=== PATIENT | female | born 2000 | race Caucasian/White ===

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

== ENCOUNTER 2021-12-28 16:39 | Emergency (ER) | payer OTHER, MEDICAID, SELFPAY ==
[2021-12-28 16:50] VITALS: BP 164/85; PULSE 94; RESP 20; TEMP 36.7; O2SAT 96; BMI 33.0
--- NOTE | 2021-12-28 17:07 | ED_ITS ---
HPI - Psych General Chief Complaint: Psychiatric Symptoms Stated Complaint: suicidal thoughts/x2 months Time Seen by Provider: 12/28/21 16:49 Source: patient and family Mode of arrival: Ambulatory Limitations: no limitations History of Present Illness HPI Narrative: Patient is a 21-year-old female. Has a prior diagnosis of anxiety and depression. Has been on medications in the past for this but nothing currently. She also has seen a therapist in the past however she stated that earlier this year when she was no longer on her parents' insurance and she did not have a job she did not have a way to pay for the therapy session so she has not been in to see anyone in sometime. States for the past couple months she has had almost daily thoughts of suicide although never had much of a drive to act on any of these thoughts. He stated that this morning for some reason the suicidal thoughts became much more invasive. She stated that she was very scared that she actually was going to act on the thoughts. She kept telling herself that she would not be alive by the time evening came. She had plans on taking pills and overdosing. She told her mother about the thoughts and voluntarily came to the emergency department. She stated that she has not tried to hurt herself. No alcohol. No illicit drugs. Did not take any medications prior to arrival. She states she has been admitted to the hospital in the past for mental health issues but that was when she was 14 years old. She is accompanied here in the emergency department by her mother. She states that she has done cutting in the past but nothing recent. Related Data Home Medications Medication Instructions Recorded Confirmed propranolol 10 mg tablet 10 mg PO BID PRN Anxiety 07/07/18 07/07/18 Allergies Allergy/AdvReac Type Severity Reaction Status Date / Time No Known Drug Allergies Allergy Verified 12/29/21 12:44 Review of Systems Constitutional Comments: Denies headache Cardiovascular Comments: Denies chest pain Respiratory Comments: Denies shortness of breath Gastrointestinal Comments: Denies abdominal pain Genitourinary Comments: Denies any urinary symptoms Integumentary/Breasts Comments: Denies any rashes Psychiatric Psychiatric: Reports system reviewed and no additional complaints, except as d ocumented and Reports as per HPI Hematologic/Lymphatic On Anticoagulants: No Patient History Medical History Anxiety Depression Intentional drug overdose Patient denies significant medical history Social History Smoking Status: Never smoker Smoking Status: Never smoker alcohol intake frequency: 0-2 drinks per day Substance Use Type: does not use Exam Initial Vital Signs Initial Vital Signs: Vital Signs Temperature 98.0 F 12/28/21 16:50 Pulse Rate 94 H 12/28/21 16:50 Respiratory Rate 20 12/28/21 16:50 Blood Pressure 164/85 H 12/28/21 16:50 Pulse Oximetry 96 12/28/21 16:50 Oxygen Delivery Method 12/28/21 16:50 Const General: cooperative, comfortable and well developed HENMT Head: normal to inspection and normocephalic Resp Effort & Inspection: normal respiratory effort Auscultation: clear to auscultation bilaterally Cardio Rate: regular rate Rhythm: regular rhythm GI Inspection: normal to inspection Skin General: no rashes or lesions noted Neuro General: patient alert, patient awake, patient oriented x3 and moves all extremities Extrem General: normal to inspection Psych Appearance: well kempt Speech and Movement: not agitated and restless Mood: anxious mood and No angry Affect: sad Attitude: cooperative Thought Process: normal Thought Content: suicidality Course Orders Ordered: Discontinued Medications Lorazepam (Lorazepam 0.5 Mg Tablet) 0.5 mg PO NOW ONE Stop: 12/28/21 17:19 Last Admin: 12/28/21 17:31 Dose: 0.5 mg Documented By: ROBERTO CARLOS Nicotine (Nicotine 14 Patch) 14 mg TOP NOW ONE Stop: 12/29/21 13:50 Last Admin: 12/29/21 14:06 Dose: 14 mg Documented By: CTS Vital Signs Vital signs: Vital Signs - 8 hr 12/29/21 13:36 Temperature 97.7 F Pulse Rate 73 Respiratory Rate 16 Blood Pressure 131/79 Pulse Oximetry 99 Oxygen Delivery Method Room Air MDM - Psych Lab Data Result diagrams: 12/28/21 17:22 12/28/21 17:22 Labs: Lab Results 12/28/21 12/28/21 12/28/21 Range/Units 17:08 17:15 17:15 WBC (4.5-11.0) X10^3/uL RBC (4.0-5.2) X10^6/uL Hgb (12.0-16.0) g/dL Hct (36-46) % MCV (80-100) fL MCH (26-34) PG MCHC (30-36) % RDW (11.6-14.8) % Plt Count (150-400) X10^3/uL Neut % (Auto) (50-75) % Lymph % (Auto) (25-40) % [place] % (Auto) (3-14) % Eos % (Auto) (2-4) % Baso % (Auto) (0-2) % Neut # (Auto) (3980-0266) /uL Lymph # (Auto) (5305-6011) /uL [place] # (Auto) (0-900) /uL Eos # (Auto) (0-450) /uL Baso # (Auto) (0-100) /uL Sodium (137-145) mmol/L Potassium (3.4-5.1) mmol/L Chloride (98-107) mmol/L Carbon Dioxide (22-32) mmol/L BUN (7-17) mg/dL Creatinine (0.52-1.04) mg/dL Estimated GFR (>60) mL/min BUN/Creatinine Ratio (6-22) Glucose (70-100) mg/dL Calcium (8.4-10.2) mg/dL Total Bilirubin (0.2-1.3) mg/dL AST (14-36) IU/L ALT (<35) IU/L Alkaline Phosphatase (38-126) U/L Total Protein (6.3-8.2) g/dL Albumin (3.5-5.0) g/dL Globulin (1.7-4.1) g/dL Albumin/Globulin Ratio (1.0-2.8) TSH (0.47-4.68) uIU/mL Free T4 (0.78-2.19) ng/dL Urine RBC 1-5/hpf (0-5/HPF) Urine WBC 10-30/hpf H (0-5/HPF) Ur Squamous Epith Cells 10-30 /hpf H (0-5/HPF) Amorphous Sediment 2+ Urine Bacteria Few (2-10) H (None) Urine Mucus 2+ H (Negative) Ur Culture Indicated? Specimen cultured Salicylates (<20) mg/dL U Opiates 300ng/mL cut Negative (Negative) Ur Oxycodone Screen Negative (Negative) Urine Methadone Screen Negative (Negative) Acetaminophen (10-30) ug/mL Ur Barbiturates Screen Negative (Negative) U Tricyclic Antidepress Negative (Negative) Ur Phencyclidine Scrn Negative (Negative) Ur Amphetamines Screen Negative (Negative) U Methamphetamines Scrn Negative (Negative) Ur MDMA Scrn (Ecstasy) Negative (Negative) U Benzodiazepines Scrn Negative (Negative) Urine Cocaine Screen Negative (Negative) U Marijuana (THC) Screen Positive H (Negative) Ethyl Alcohol ( - 10) mg/dL SARS-CoV-2 (PCR) Negative (Negative) 12/28/21 12/28/21 12/28/21 Range/Units 17:22 17:22 17:22 WBC 11.4 H (4.5-11.0) X10^3/uL RBC 5.21 H (4.0-5.2) X10^6/uL Hgb 15.2 (12.0-16.0) g/dL Hct 45.5 (36-46) % MCV 87.3 (80-100) fL MCH 29.1 (26-34) PG MCHC 33.3 (30-36) % RDW 13.8 (11.6-14.8) % Plt Count 262 (150-400) X10^3/uL Neut % (Auto) 77.5 H (50-75) % Lymph % (Auto) 14.7 L (25-40) % [place] % (Auto) 7.0 (3-14) % Eos % (Auto) 0.3 L (2-4) % Baso % (Auto) 0.5 (0-2) % Neut # (Auto) 8900 H (7488-7637) /uL Lymph # (Auto) 1700 (8893-9454) /uL [place] # (Auto) 800 (0-900) /uL Eos # (Auto) 0 (0-450) /uL Baso # (Auto) 100 (0-100) /uL Sodium 142 (137-145) mmol/L Potassium 4.1 (3.4-5.1) mmol/L Chloride 104 (98-107) mmol/L Carbon Dioxide 23 (22-32) mmol/L BUN 10 (7-17) mg/dL Creatinine 0.96 (0.52-1.04) mg/dL Estimated GFR > 60 (>60) mL/min BUN/Creatinine Ratio 10.4 (6-22) Glucose 91 (70-100) mg/dL Calcium 9.5 (8.4-10.2) mg/dL Total Bilirubin 0.6 (0.2-1.3) mg/dL AST 28 (14-36) IU/L ALT 19 (<35) IU/L Alkaline Phosphatase 94 (38-126) U/L Total Protein 9.1 H (6.3-8.2) g/dL Albumin 5.0 (3.5-5.0) g/dL Globulin 4.1 (1.7-4.1) g/dL Albumin/Globulin Ratio 1.2 (1.0-2.8) TSH 0.444 L (0.47-4.68) uIU/mL Free T4 1.47 (0.78-2.19) ng/dL Urine RBC (0-5/HPF) Urine WBC (0-5/HPF) Ur Squamous Epith Cells (0-5/HPF) Amorphous Sediment Urine Bacteria (None) Urine Mucus (Negative) Ur Culture Indicated? Salicylates < 1.0 (<20) mg/dL U Opiates 300ng/mL cut (Negative) Ur Oxycodone Screen (Negative) Urine Methadone Screen (Negative) Acetaminophen < 10 (10-30) ug/mL Ur Barbiturates Screen (Negative) U Tricyclic Antidepress (Negative) Ur Phencyclidine Scrn (Negative) Ur Amphetamines Screen (Negative) U Methamphetamines Scrn (Negative) Ur MDMA Scrn (Ecstasy) (Negative) U Benzodiazepines Scrn (Negative) Urine Cocaine Screen (Negative) U Marijuana (THC) Screen (Negative) Ethyl Alcohol < 10 ( - 10) mg/dL SARS-CoV-2 (PCR) (Negative) Point of Care Testing Test Results Negative Urine Dip Bedside Urine Glucose Negative Bedside Urine Bilirubin + 1 Bedside Urine Ketone + 15 Urine Specific [place] 1.030 Bedside Urine Occult Blood + Bedside Urine pH 5.0 Bedside Urine Protein + 30 Bedside Urine Urobilinogen - Negative Bedside Urine Nitrite - Negative Bedside Urine Leukocytes + 70 Esterase MDM Narrative Medical decision making narrative: Patient is here voluntarily. Patient denies any ingestions. She is currently having very invasive suicidal thoughts that obviously scared her. She states she was very nervous about being here. She was crying during the interview. I initially offered her Ativan to help with the anxiety and initially she declined but then after talking with nursing staff she stated that she would take it. She was given 0.5 mg Ativan p.o.. Patient is medically cleared. She does have leukocyte esterase in her urine and some white blood cells but also many epi cells. The specimen was cultured. Given her lack of UTI like symptoms will wait for the culture to result before treating with any antibiotics. Patient is medically cleared. Social work consult placed. Care turned over to Dr. Shelton at change of shift to continue to observe until disposition. Patient has been stable overnight. Has not required any further benzodiazepines. Was given a nicotine patch for her request. Patient was evaluated by social work. She is voluntary. Was accepted to [facility]. Will transfer to [facility] voluntary. She is stable for transport. Discharge Plan Departure Patient Disposition: Xfer Psychiatric Hosp Clinical Impression: Suicidal ideation, Depression, Anxiety Referrals: Sean Zavala MD [Primary Care Provider] -
[2021-12-28] MEDS: LORazepam 0.5 MG TABLET PO (17:31)
[2021-12-28 17:33] LABS: Add Manual Diff / Slide Review NO; Basophils Absolute Auto 100 /uL (0-100); Basophils Percent Auto 0.5 % (0-2); Eosinophils Absolute Auto 0 /uL (0-450); Eosinophils Percent Auto 0.3 % (2-4); Hematocrit 45.5 % (36-46); Hemoglobin 15.2 g/dL (12.0-16.0); Lymphocytes Absolute Auto 1700 /uL (1100-4500); Lymphocytes Percent Auto 14.7 % (25-40); Mean Corpuscular HGB Conc 33.3 % (30-36); Mean Corpuscular Hemoglobin 29.1 PG (26-34); Mean Corpuscular Volume 87.3 fL (80-100); Monocytes Absolute Auto 800 /uL (0-900); Neutrophils Absolute Auto 8900 /uL (1500-7000); Neutrophils Percent Auto 77.5 % (50-75); Platelet Count 262 X10^3/uL (150-400); Red Blood Cell Count 5.21 X10^6/uL (4.0-5.2); Red Cell Distribution Width 13.8 % (11.6-14.8); White Blood Cell Count 11.4 X10^3/uL (4.5-11.0)
[2021-12-28 17:35] LABS: Amorphous Sediment Urine 2+; Bacteria Urine Few (2-10); Culture Indicated Urine Specimen Cultured; Mucus Urine 2+ (Negative); RBC Urine 1-5/HPF (0-5/HPF); Squamous Epithelial Cell Urine 10-30 /HPF (0-5/HPF); WBC Urine 10-30/HPF (0-5/HPF)
[2021-12-28 17:40] LABS: UR Morphine/Opiate cutoff 300 Negative (Negative); Ur Creatinine Normal (Normal); Ur Specific Gravity Normal (Normal); Urine Amphetamines Negative (Negative); Urine Barbiturates Negative (Negative); Urine Benzodiazepines Negative (Negative); Urine Cocaine Negative (Negative); Urine MDMA Negative (Negative); Urine Methadone Negative (Negative); Urine Methamphetamines Negative (Negative); Urine Oxycodone Negative (Negative); Urine Phencyclidine Negative (Negative); Urine Tetrahydrocannabinol Positive (Negative); Urine Tricyclic Antidepressant Negative (Negative); Urine pH Normal (Normal)
[2021-12-28 17:44] LABS: COVID19 -Nasal RAPID Negative (Negative)
[2021-12-28 17:46] LABS: Acetaminophen < 10 ug/mL (10-30); Alanine Aminotransferase 19 IU/L (<35); Albumin Globulin Ratio 1.2 (1.0-2.8); Alkaline Phosphatase 94 U/L (38-126); Aspartate Aminotransferase 28 IU/L (14-36); BUN Creatinine Ratio 10.4 (6-22); Bilirubin Total 0.6 mg/dL (0.2-1.3); Blood Urea Nitrogen 10 mg/dL (7-17); Calcium 9.5 mg/dL (8.4-10.2); Carbon Dioxide 23 mmol/L (22-32); Chloride 104 mmol/L (98-107); Estimated Glomerular Filt Rate > 60 mL/min (>60); Ethanol (ETOH) < 10 mg/dL; Globulin 4.1 g/dL (1.7-4.1); Glucose 91 mg/dL (70-100); HEMOLYSIS < 15 (0-50); Potassium 4.1 mmol/L (3.4-5.1); Salicylate < 1.0 mg/dL (<20); Sodium 142 mmol/L (137-145); Total Protein 9.1 g/dL (6.3-8.2)
[2021-12-28 18:02] LABS: Free T4, Direct Thyroxine 1.47 ng/dL (0.78-2.19)
[2021-12-28 18:16] LABS: Thyroid Stimulating Hormone 0.444 uIU/mL (0.47-4.68)
--- NOTE | 2021-12-28 18:24 | PC.NURSE ---
Patient is calm and agreeable with staff, mother at bedside.
--- NOTE | 2021-12-29 02:34 | PM.HP.1 ---
History of Present Illness History of Present Illness Date Patient Seen: 12/29/21 Date of Onset of Symptoms: 12/28/21 Chief complaint: suicidal thoughts/x2 months Patient History Medical History Anxiety Depression Intentional drug overdose Patient denies significant medical history Family & Social History Safety & Behavioral: Feels Safe in Current Yes Environment Been Physically Hurt or No Threatened By a Person Tobacco & Substance use: Smoking Status Never smoker alcohol intake frequency 0-2 drinks per day Substance Use Type does not use Meds Home Medications and Allergies Home Medications Medication Instructions Recorded Confirmed Type propranolol 10 mg tablet 10 mg PO BID PRN Anxiety 07/07/18 07/07/18 History Allergies Allergy/AdvReac Type Severity Reaction Status Date / Time No Known Drug Allergies Allergy Verified 07/07/18 09:25 Exam Vital Signs (past 8 hours): Oxygen Delivery Method Room Air Objective Labs Result Diagrams: 12/28/21 17:22 12/28/21 17:22 Labs: Laboratory Results - last 24 hr 12/28/21 12/28/21 12/28/21 17:08 17:15 17:15 WBC RBC Hgb Hct MCV MCH MCHC RDW Plt Count Neut % (Auto) Lymph % (Auto) [place] % (Auto) Eos % (Auto) Baso % (Auto) Neut # (Auto) Lymph # (Auto) [place] # (Auto) Eos # (Auto) Baso # (Auto) Sodium Potassium Chloride Carbon Dioxide BUN Creatinine Estimated GFR BUN/Creatinine Ratio Glucose Calcium Total Bilirubin AST ALT Alkaline Phosphatase Total Protein Albumin Globulin Albumin/Globulin Ratio TSH Free T4 Urine RBC 1-5/hpf Urine WBC 10-30/hpf H Ur Squamous Epith Cells 10-30 /hpf H Amorphous Sediment 2+ Urine Bacteria Few (2-10) H Urine Mucus 2+ H Ur Culture Indicated? Specimen cultured Salicylates U Opiates 300ng/mL cut Negative Ur Oxycodone Screen Negative Urine Methadone Screen Negative Acetaminophen Ur Barbiturates Screen Negative U Tricyclic Antidepress Negative Ur Phencyclidine Scrn Negative Ur Amphetamines Screen Negative U Methamphetamines Scrn Negative Ur MDMA Scrn (Ecstasy) Negative U Benzodiazepines Scrn Negative Urine Cocaine Screen Negative U Marijuana (THC) Screen Positive H Ethyl Alcohol SARS-CoV-2 (PCR) Negative 12/28/21 12/28/21 12/28/21 17:22 17:22 17:22 WBC 11.4 H RBC 5.21 H Hgb 15.2 Hct 45.5 MCV 87.3 MCH 29.1 MCHC 33.3 RDW 13.8 Plt Count 262 Neut % (Auto) 77.5 H Lymph % (Auto) 14.7 L [place] % (Auto) 7.0 Eos % (Auto) 0.3 L Baso % (Auto) 0.5 Neut # (Auto) 8900 H Lymph # (Auto) 1700 [place] # (Auto) 800 Eos # (Auto) 0 Baso # (Auto) 100 Sodium 142 Potassium 4.1 Chloride 104 Carbon Dioxide 23 BUN 10 Creatinine 0.96 Estimated GFR > 60 BUN/Creatinine Ratio 10.4 Glucose 91 Calcium 9.5 Total Bilirubin 0.6 AST 28 ALT 19 Alkaline Phosphatase 94 Total Protein 9.1 H Albumin 5.0 Globulin 4.1 Albumin/Globulin Ratio 1.2 TSH 0.444 L Free T4 1.47 Urine RBC Urine WBC Ur Squamous Epith Cells Amorphous Sediment Urine Bacteria Urine Mucus Ur Culture Indicated? Salicylates < 1.0 U Opiates 300ng/mL cut Ur Oxycodone Screen Urine Methadone Screen Acetaminophen < 10 Ur Barbiturates Screen U Tricyclic Antidepress Ur Phencyclidine Scrn Ur Amphetamines Screen U Methamphetamines Scrn Ur MDMA Scrn (Ecstasy) U Benzodiazepines Scrn Urine Cocaine Screen U Marijuana (THC) Screen Ethyl Alcohol < 10 SARS-CoV-2 (PCR) Assessment & Plan Assessment and plan (1) Acute respiratory failure with hypoxia: Status: Acute (2) Acute asthma exacerbation: Status: Acute (3) CAP (community acquired pneumonia): Status: Acute (4) Hypokalemia: Status: Acute Time Spent With Patient Critical Care time: I spent a total of [] minutes of critical care time on this patient's care today; this time is exclusive of procedural time.
--- NOTE | 2021-12-29 02:47 | PC.NURSE ---
Pt sitting quietly on sherri reading a book
[2021-12-29 07:01] VITALS: BP 124/77; PULSE 78; RESP 18; O2SAT 99
[2021-12-29 13:36] VITALS: BP 131/79; PULSE 73; RESP 16; TEMP 36.5; O2SAT 99
--- NOTE | 2021-12-29 13:51 | CM.SWNOTE ---
CORK TIPPER Assessment CORK TIPPER - E Commerce Web Developer Assessment CORK TIPPER/E Commerce Web Developer Assessment Time Spent with Patient Start date 12/29/21 Visit Start Time 12:10 End date 12/29/21 Visit End Time 12:40 Total time Care Management spent on 30 minutes patient visit-in minutes Mental Health Screening Include Onset, Duration, Intensity Presenting Problem Patient presents to ED last evening with mother via POV due to patient's concern for increasing SI in the last few months. Patient reports that last evening patient felt increased intensity of SI and concern for carrying out SI plans and unable to stay safe. Patient informed her mother and mother brought patient to ED. Precipitating Event(s) Patient endorses in the last few months she stopped seeing her therapist due to losing insurance once she turned 21, she changed jobs and recently ended halfway relationship with boyfriend. Patient endorses she has been spiraling and I can't pick myself back up again. Patient Strengths Patient has supports and informed supports when she didn't feel safe. Patient is seeking help. Current Behavioral Health Provider(s) Patient endorses hx of Include Facility, Provider, Ph. # therapist and prescribing physician for MH medications but patient was unable to continue due to parent's insurance ending. Psych. Hx Mental Health and Chemical Patient has hx of Depression, Dependency Anxiety and SI. Patient endorses ETOH use and increase in the last few months, drinking 3 or more drinks about 3 days a week. Patient endorses Marijuana use when she needs help going to sleep. Family Hx of Behavioral Abuse None reported Psychiatric Hospitalizations (date(s)/ No hx. location) Patient endorses going to ED when she was 14 y/o due to concern for MH crisis. Psychosocial information & Support Patient is 21 y/o female who Systems resides with mother, step dad and two younger sisters in [place]. Patient endorses her mother as a main support and states that she relied on her ex- boyfriend as a support in the past and states that she could reach out to him now. School/Work Patient endorses that she works at [employer] and likes her job . Legal Concerns Legal Matters - Outstanding Issues None reported Mental Status Orientation (Person/Place/Time) A/Ox3 Stated Mood tired Affect (Congruent with Mood?) euthymic, full range, congruent with mood Thought Content - Specify/Describe Patient endorses hx of hearing Obsessions, Delusions, Hallucinations voices when she is lacking sleep. Patient endorses recently she responded to a conversation in her head. Patient denies visual hallucinations but states that I'll basically be losing it but it doesn't feel like real life and it feels like a hazy dream. Thought Processes (Bibcbjj-Yekvfesq-Vcza Coherent Vifgpkcq-Fckypwaw-Auhaeqzcph- Rohedjdbewewto-Wljfoac-Lektqskhelvo- Thought Blocking) Speech (Bsmijp-Pqhh-Yqqdwwq-Rapid-Soft- normal/soft Loud-Pressured) Motor (Mzmclo-Qcvjytjvf-Bmjw-Other) normal Insight (Frox-Vucm-Cgyf/Limited) fair/limited due to age Judgement (Jjqa-Mxlg-Djyr/Limited) fair/limited due to age Impulse Control (Adequate-Impaired) Adequate in ED during assessment, patient endorsed concern for impulse control prior to presenting to the ED. Memory (Hqdjsmkoe-Fczeyg-Cdfwzg, Intact, not formally assessed Impaired-Intact) Concentration (Intact-Impaired) Intact Attention (Intact-Impaired) Intact Behavior (Appropriate-Inappropriate) appropriate Additional Comment Patient presents as calm, cooperative and communicative. Risk Assessment Suicidal Ideation (Plan) Yes Homicidal Ideation (Plan) No Comment Patient denies HI. Patient endorses SI at baseline and increasing SI in the last few months. Patient endorses last yesterday her SI increased in intensity. Patient endorses thoughts of overdosing on old medications or cutting self. Patient endorsed concern to her mother that she was unable to keep herself safe. Patient endorses that yesterday she consistently thought about not being alive. Patient endorses hx of self harm when she cut herself when she was 17 or 18 y/o. Intervention Intervention CORK TIPPER enters room to meet with patient. Patient is sleeping and present in room is patient 's mother and step father. Patient's mother endorses concern for patient and states that patient could not contract for safety yesterday and informed mother about patient's increase in SI which led to mother bringing patient to ED. Patient wakes up and CORK TIPPER meets with patient privately. Patient endorses concern for increase in SI within the last few months due to life stressors and changes. Patient endorses that yesterday morning her SI intensified and she asked for help. Patient endorses she has not had an outpatient MH provider in a few months or been on any medication. Patient endorses she is interested in voluntary inpatient hospitalization and is seeking help. It is the opinion of this CORK TIPPER that patient is appropriate for and will benefit from voluntary inpatient hospitalization for safety, crisis stabilization and medication management. At this time, patient does not have insurance, CORK TIPPER to assist in signing patient up for state insurance. CORK TIPPER reviews the above with ED provider Dr. Cagle who indicates agreement and understanding. Dr. Cagle endorses that patient is medically clear. Plan RA Plan CORK TIPPER to seek voluntary inpatient hospitalization for patient. CORK TIPPER assists in setting up patient with state insurance. Patient now has Medicaid [place] coverage starting 12/11/21. JEF Batista
[2021-12-29] MEDS: NICOTINE 14 PATCH 14 MG TOP (14:06)
--- NOTE | 2021-12-29 14:46 | CM.SWNOTE ---
CARGO STATION WORKER Note CARGO STATION WORKER calls [facility] for bed census for [facility] inpatient hospitals. CARGO STATION WORKER calls [facility] intake, it is reported that they have beds and can review patient, CARGO STATION WORKER faxes clinicals for review. [facility]GO STATION WORK[facility] by accepting provider SHAQUILLE Ventura at arrival time 2130. BRICK CLEANER to set up transportation. Nurse to Nurse: [phone]. CARGO STATION WORKER informs patient who indicates agreement and understanding. CARGO STATION WORKER calls patient's mother and leaves requesting return call. Plan: Patient to transfer to [facility] via BLS for voluntary inpatient bed this evening. TARAN BatistaSW
--- NOTE | 2021-12-29 19:00 | PC.NURSE ---
patient reports that she is a little nervous about her stay at [facility]. she reports that she has never had an inpatient stay before and that she does not know what to expect. she reports that she had a bad experience when she was 14 at another facility and since then she has been scared to open up and express her feelings. provider aware.
[2021-12-29 20:45] VITALS: BP 142/83; PULSE 83; RESP 16; TEMP 37.2; O2SAT 99
== END 2021-12-29 20:45 ==
PROVIDERS: Emergency Provider Emergency Medicine; Family Provider Pediatrics Pediatric Emergency Medicine; PCP Pediatrics Pediatric Emergency Medicine
DX: R45.851 Suicidal ideations (principal); F32.A Depression, unspecified; F41.9 Anxiety disorder, unspecified; Z20.822 Contact with and (suspected) exposure to COVID-19
CPT/HCPCS: 36415; 80053; 80305; 80320; 80329; 81003; 81015; 81025; 84439; 84443; 85025; 87086; 87635; 99284; C9803; G0480

== ENCOUNTER → 2022-02-25 11:17 | Outpatient (CLI) | payer OTHER, MEDICAID, SELFPAY | PROVIDERS: Visit Provider Nurse Practitioner Family | DX: J02.9 Acute pharyngitis, unspecified (principal) | CPT/HCPCS: 87070; 87880 ==

== ENCOUNTER 2022-05-23 12:23 | Emergency (ER) | payer OTHER, MEDICAID, SELFPAY ==
[2022-05-23 12:39] VITALS: BP 121/69; PULSE 81; RESP 14; TEMP 37.4; O2SAT 100; BMI 32.3
[2022-05-23 13:23] LABS: Add Manual Diff / Slide Review NO; Basophils Absolute Auto 0 /uL (0-100); Basophils Percent Auto 0.3 % (0-2); Eosinophils Absolute Auto 0 /uL (0-450); Eosinophils Percent Auto 0.2 % (2-4); Hemoglobin 13.7 g/dL (12.0-16.0); Lymphocytes Absolute Auto 1600 /uL (1100-4500); Lymphocytes Percent Auto 9.7 % (25-40); Mean Corpuscular HGB Conc 32.7 % (30-36); Mean Corpuscular Hemoglobin 29.1 PG (26-34); Mean Corpuscular Volume 88.9 fL (80-100); Monocytes Absolute Auto 1900 /uL (0-900); Monocytes Percent Auto 11.7 % (3-14); Neutrophils Absolute Auto 12500 /uL (1500-7000); Neutrophils Percent Auto 78.1 % (50-75); Platelet Count 245 X10^3/uL (150-400); Red Blood Cell Count 4.72 X10^6/uL (4.0-5.2); Red Cell Distribution Width 13.5 % (11.6-14.8)
--- NOTE | 2022-05-23 13:30 | DI.US.S_ITS ---
PROCEDURE: US PELVIC COMPLETE INDICATIONS: POSITIVE HOME TECHNIQUE: Real-time scanning was performed of the pelvic organs, with image documentation. Additional endovaginal scanning was necessary due to incomplete visualization of the adnexal and endometrial structures by transabdominal scanning. COMPARISON: None. FINDINGS: Uterus: Uterus is anteverted and normal in size at 5.4 x 2.7 x 3.5 cm. The myometrium is homogeneous. The endometrium measures 5 mm combined thickness. No findings of an intrauterine can be seen. Ovaries: The right ovary measures 2.5 x 3.2 x 2 cm, with a calculated ovarian volume of 8.1 cc. The left ovary measures 2.9 x 2.6 x 1.5 cm, with a calculated ovarian volume of 5.8 cc. The ovaries have a normal sonographic appearance. Less than 12 follicles can be seen in each ovary. No adnexal masses are seen. Other: No pathologic free abdominal or pelvic fluid. IMPRESSION: An intrauterine is not seen. No findings of ectopic . Differential diagnosis includes a completed spontaneous miscarriage and an ectopic . An early normal is possible, yet considered to be unlikely, given the provided dating. Close clinical followup, with serial beta-hCG and serial ultrasound are recommended, if clinically appropriate. We strive to produce accurate, complete, and clear reports of imaging services. To assist us in improving patient care, this report was composed using standard report templates and voice recognition software. Therefore, it may contain abnormal punctuation, insertions and/or omissions. Occasional wrong-word or sound-alike substitutions may occur. Though we review the report and make efforts to correct it, we do recommend that the report be read carefully in proper context to recognize any text inaccuracies. Dictated by: Yuniel iBll M.D. on 05/23/2022 at 13:29 Approved by: Yuniel Bill M.D. on 05/23/2022 at 13:31
[2022-05-23 13:40] LABS: Influenza A - CEPHEID Flu A NEGATIVE (NEGATIVE); Influenza B - CEPHEID Flu B NEGATIVE (NEGATIVE); Respiratory Syncytial Virus Negative (Negative)
[2022-05-23 13:41] LABS: Alanine Aminotransferase 13 IU/L (<35); Albumin 4.6 g/dL (3.5-5.0); Albumin Globulin Ratio 1.2 (1.0-2.8); Alkaline Phosphatase 84 U/L (38-126); Aspartate Aminotransferase 20 IU/L (14-36); BUN Creatinine Ratio 11.4 (6-22); Blood Urea Nitrogen 9 mg/dL (7-17); Calcium 9.3 mg/dL (8.4-10.2); Carbon Dioxide 26 mmol/L (22-32); Chloride 100 mmol/L (98-107); Estimated Glomerular Filt Rate > 60 mL/min (>60); Globulin 3.7 g/dL (1.7-4.1); Glucose 95 mg/dL (70-100); HEMOLYSIS < 15 (0-50); Potassium 3.9 mmol/L (3.4-5.1); Sodium 138 mmol/L (137-145); Total Protein 8.3 g/dL (6.3-8.2)
[2022-05-23 13:57] LABS: HCG Quantitative /Beta subunit < 2.4 mIU/mL
[2022-05-23 14:00] LABS: COVID-19 CEPHEID 4-PLEX PCR Negative (Negative)
[2022-05-23 14:15] LABS: RBC Urine 0-1/HPF (0-5/HPF); WBC Urine 10-30/HPF (0-5/HPF)
[2022-05-23 14:16] LABS: Bacteria Urine Many (>30); Culture Indicated Urine Specimen Cultured; Squamous Epithelial Cell Urine >30 /HPF (0-5/HPF)
--- NOTE | 2022-05-23 14:56 | ED_ITS ---
HPI - URI/Sore Throat <SHAQUILLE Corrales - Last Filed: 05/23/22 15:32> General Chief Complaint: Upper Respiratory Symptoms Stated Complaint: body aches, throat pain/swelling, x3days Time Seen by Provider: 05/23/22 14:32 Source: patient Mode of arrival: Ambulatory History of Present Illness HPI Narrative: 21-year-old female, never smoker, presents to the emergency department with sore throat x3 days. Patient reports that throat has became more severely painful this morning and is having difficulty swallowing. Patient believes she is as her last menstrual period was 10 weeks ago. Patient has inte rmittent spotting and cramping since then. Related Data Previous Rx's Medication Instructions Recorded penicillin V potassium 500 mg 500 mg PO BID Strep pharyngitis 10 05/23/22 tablet days #20 tabs Allergies Allergy/AdvReac Type Severity Reaction Status Date / Time No Known Drug Allergies Allergy Verified 05/23/22 14:13 Review of Systems <SHAQUILLE Corrales - Last Filed: 05/23/22 15:32> Review of Systems Narrative: Narrative: See HPI. GENERAL: Denies chills, fatigue, fever, sweats. HEENT: Denies sinus pain, ear pain, dizziness. Endorses sore throat and difficulty swallowing. RESPIRATORY: Denies dyspnea, cough, wheezing, sputum. CARDIOVASCULAR: Denies chest pain, palpitations, edema. GASTROINTESTINAL: Denies nausea, vomiting, abdominal pain, diarrhea, constipatio n. : Denies dysuria, frequency, incontinence, hematuria, urinary retention, flank pain. MSK: Denies weakness, joint pain, or bony pain. SKIN: Denies rash, skin lesions, or pruritis. NEUROLOGIC: Denies weakness, dizziness, headache, numbness, confusion. PSYCHIATRIC: No concerning psychosocial issues. Patient History <SHAQUILLE Corrales - Last Filed: 05/23/22 15:32> Medical History Anxiety Depression Intentional drug overdose Patient denies significant medical history Social History Smoking Status: Never smoker Smoking Status: Never smoker alcohol intake frequency: 0-2 drinks per day Substance Use Type: does not use Exam <SHAQUILLE Corrales - Last Filed: 05/23/22 15:32> Narrative Exam Narrative: Exam Narrative: GENERAL: This is a well-nourished, well-developed patient, in no acute distress. HEAD: Atraumatic. Normocephalic. EYES: Pupils equal round and reactive. Extraocular motions intact. No scleral icterus, injection or drainage. ENT: Nose without bleeding, purulent drainage. Throat with erythema, tonsillar hypertrophy and exudate. Uvula midline. Airway patent. TMs and canals clear. No sinus tenderness. NECK: Trachea midline. Tender submandibular lymphadenopathy on left side. CARDIOVASCULAR: Regular rate and rhythm without murmurs, peripheral pulses intact, cap refill <2 sec. RESPIRATORY: Breath sounds equal and clear bilaterally. No wheezes, rales, or rhonchi. No cough. No increased respiratory effort. No accessory muscle use. GASTROINTESTINAL: Abdomen soft, non-tender, nondistended without guarding or rebound. No suprapubic pain. MSK: Moves all extremities. Normal range of motion, no clubbing or edema. Neurovascularly intact. NEURO: A&O x 3. SKIN: Warm, dry, no rashes or lesions noted. Initial Vital Signs Initial Vital Signs: Vital Signs Temperature 99.3 F 05/23/22 12:39 Pulse Rate 81 05/23/22 12:39 Respiratory Rate 14 05/23/22 12:39 Blood Pressure 121/69 05/23/22 12:39 Pulse Oximetry 100 05/23/22 12:39 Oxygen Delivery Method 05/23/22 12:39 Reviewed <Tari Gonzalez DO - Last Filed: 05/24/22 17:14> Initial Vital Signs Initial Vital Signs: Vital Signs Temperature 99.3 F 05/23/22 12:39 Pulse Rate 81 05/23/22 12:39 Respiratory Rate 14 05/23/22 12:39 Blood Pressure 121/69 05/23/22 12:39 Pulse Oximetry 100 05/23/22 12:39 Oxygen Delivery Method 05/23/22 12:39 Course <SHAQUILLE Corrales - Last Filed: 05/23/22 15:32> Orders Ordered: Discontinued Medications Dexamethasone (Dexamethasone 10 Mg/Ml Vial) 10 mg PO NOW ONE Stop: 05/23/22 15:04 Last Admin: 05/23/22 15:30 Dose: 10 mg Documented By: KLS Vital Signs Vital signs: Vital Signs - 8 hr 05/23/22 12:39 Temperature 99.3 F Pulse Rate 81 Respiratory Rate 14 Blood Pressure 121/69 Pulse Oximetry 100 Oxygen Delivery Method Room Air <Tari Gonzalez DO - Last Filed: 05/24/22 17:14> Orders Ordered: Discontinued Medications Dexamethasone (Dexamethasone 10 Mg/Ml Vial) 10 mg PO NOW ONE Stop: 05/23/22 15:04 Last Admin: 05/23/22 15:30 Dose: 10 mg Documented By: KLS Vital Signs Vital signs: Vital Signs - 8 hr 05/23/22 12:39 Temperature 99.3 F Pulse Rate 81 Respiratory Rate 14 Blood Pressure 121/69 Pulse Oximetry 100 Oxygen Delivery Method Room Air MDM - URI/Sore Throat <SHAQUILLE Corrales - Last Filed: 05/23/22 15:32> Differential Diagnosis Differential diagnosis: Likely upper respiratory infection, viral infection and pharyngitis; Unlikely otitis media or sinusitis Lab Data 05/23/22 13:05 05/23/22 13:05 Labs: Lab Results 05/23/22 05/23/22 05/23/22 Range/Units 12:45 13:05 13:05 WBC 16.0 H (4.5-11.0) X10^3/uL RBC 4.72 (4.0-5.2) X10^6/uL Hgb 13.7 (12.0-16.0) g/dL Hct 42.0 (36-46) % MCV 88.9 (80-100) fL MCH 29.1 (26-34) PG MCHC 32.7 (30-36) % RDW 13.5 (11.6-14.8) % Plt Count 245 (150-400) X10^3/uL Neut % (Auto) 78.1 H (50-75) % Lymph % (Auto) 9.7 L (25-40) % [place] % (Auto) 11.7 (3-14) % Eos % (Auto) 0.2 L (2-4) % Baso % (Auto) 0.3 (0-2) % Neut # (Auto) 26738 H (5270-7853) /uL Lymph # (Auto) 1600 (1776-4852) /uL [place] # (Auto) 1900 H (0-900) /uL Eos # (Auto) 0 (0-450) /uL Baso # (Auto) 0 (0-100) /uL Sodium 138 (137-145) mmol/L Potassium 3.9 (3.4-5.1) mmol/L Chloride 100 (98-107) mmol/L Carbon Dioxide 26 (22-32) mmol/L BUN 9 (7-17) mg/dL Creatinine 0.79 (0.52-1.04) mg/dL Estimated GFR > 60 (>60) mL/min BUN/Creatinine Ratio 11.4 (6-22) Glucose 95 (70-100) mg/dL Calcium 9.3 (8.4-10.2) mg/dL Total Bilirubin 1.0 (0.2-1.3) mg/dL AST 20 (14-36) IU/L ALT 13 (<35) IU/L Alkaline Phosphatase 84 (38-126) U/L Total Protein 8.3 H (6.3-8.2) g/dL Albumin 4.6 (3.5-5.0) g/dL Globulin 3.7 (1.7-4.1) g/dL Albumin/Globulin Ratio 1.2 (1.0-2.8) HCG, Quant < 2.4 mIU/mL Urine RBC (0-5/HPF) Urine WBC (0-5/HPF) Ur Squamous Epith Cells (0-5/HPF) Urine Bacteria (None) Ur Culture Indicated? SARS-CoV-2 (PCR) Negative (Negative) Influenza A (RT-PCR) Flu a negative (NEGATIVE) Influenza B (RT-PCR) Flu b negative (NEGATIVE) RSV (PCR) Negative (Negative) Blood Type Antibody Screen 05/23/22 05/23/22 Range/Units 13:05 13:59 WBC (4.5-11.0) X10^3/uL RBC (4.0-5.2) X10^6/uL Hgb (12.0-16.0) g/dL Hct (36-46) % MCV (80-100) fL MCH (26-34) PG MCHC (30-36) % RDW (11.6-14.8) % Plt Count (150-400) X10^3/uL Neut % (Auto) (50-75) % Lymph % (Auto) (25-40) % [place] % (Auto) (3-14) % Eos % (Auto) (2-4) % Baso % (Auto) (0-2) % Neut # (Auto) (3317-6186) /uL Lymph # (Auto) (2714-7094) /uL [place] # (Auto) (0-900) /uL Eos # (Auto) (0-450) /uL Baso # (Auto) (0-100) /uL Sodium (137-145) mmol/L Potassium (3.4-5.1) mmol/L Chloride (98-107) mmol/L Carbon Dioxide (22-32) mmol/L BUN (7-17) mg/dL Creatinine (0.52-1.04) mg/dL Estimated GFR (>60) mL/min BUN/Creatinine Ratio (6-22) Glucose (70-100) mg/dL Calcium (8.4-10.2) mg/dL Total Bilirubin (0.2-1.3) mg/dL AST (14-36) IU/L ALT (<35) IU/L Alkaline Phosphatase (38-126) U/L Total Protein (6.3-8.2) g/dL Albumin (3.5-5.0) g/dL Globulin (1.7-4.1) g/dL Albumin/Globulin Ratio (1.0-2.8) HCG, Quant mIU/mL Urine RBC 0-1/hpf (0-5/HPF) Urine WBC 10-30/hpf H (0-5/HPF) Ur Squamous Epith Cells >30 /hpf H (0-5/HPF) Urine Bacteria Many (>30) H (None) Ur Culture Indicated? Specimen cultured SARS-CoV-2 (PCR) (Negative) Influenza A (RT-PCR) (NEGATIVE) Influenza B (RT-PCR) (NEGATIVE) RSV (PCR) (Negative) Blood Type B Positive Antibody Screen Negative Point of Care Testing Test Results Negative Rapid Strep A Negative Urine Dip Bedside Urine Glucose Negative Bedside Urine Bilirubin - Negative Bedside Urine Ketone +++ 80 Urine Specific [place] 1.030 Bedside Urine Occult Blood +/- Bedside Urine pH 6.0 Bedside Urine Protein + 30 Bedside Urine Urobilinogen - Negative Bedside Urine Nitrite - Negative Bedside Urine Leukocytes - Negative Esterase Imaging Data US Pelvic: Radiologist's Impression: [address] [address] Ultrasound Report Signed Patient: Kierra Kidd MR#: [id number] : 2000 Acct:[id number] Age/Sex: 21 / F Date of Service: 05/23/22 Loc: ED Accession Number: [id number] ?? Procedure: US pelvic complete Ordering Provider: Tari Gonzalez D.O. PROCEDURE:? US PELVIC COMPLETE ? INDICATIONS:? POSITIVE HOME ? TECHNIQUE:? Real-time scanning was performed of the pelvic organs, with image documentation.? Additional endovaginal scanning was necessary due to incomplete visualization of the adnexal and endometrial structures by transabdominal scanning.? ? COMPARISON:? None. ? FINDINGS:? ?? Uterus:? Uterus is anteverted and normal in size at 5.4 x 2.7 x 3.5 cm. The myometrium is homogeneous. ? The endometrium measures 5 mm combined thickness.? No findings of an intrauterine can be seen. ? Ovaries:? The right ovary measures 2.5 x 3.2 x 2 cm, with a calculated ovarian volume of 8.1 cc. The left ovary measures 2.9 x 2.6 x 1.5 cm, with a calculated ovarian volume of 5.8 cc. The ovaries have a normal sonographic appearance. Less than 12 follicles can be seen in each ovary.? No adnexal masses are seen. ? Other:? No pathologic free abdominal or pelvic fluid. ? ? IMPRESSION:? An intrauterine is not seen. ? No findings of ectopic . ? Differential diagnosis includes a completed spontaneous miscarriage and an ectopic .? An early normal is possible, yet considered to be unlikely, given the provided dating. ? Close clinical followup, with serial beta-hCG and serial ultrasound are recommended, if clinically appropriate. ? We strive to produce accurate, complete, and clear reports of imaging services. To assist us in improving patient care, this report was composed using standard report templates and voice recognition software. Therefore, it may contain abnormal punctuation, insertions and/or omissions. Occasional wrong-word or sound-alike substitutions may occur. Though we review the report and make efforts to correct it, we do recommend that the report be read carefully in proper context to recognize any text inaccuracie s. ? ? Dictated by: Yuniel Bill M.D. on 05/23/2022 at 13:29 ? ? Approved by: Yuniel Bill M.D. on 05/23/2022 at 13:31 ? [facility] Narrative Medical decision making narrative: 21-year-old female presents to the walk-in clinic with sore throat x3 days. Patient is also concerned that she may be 10 weeks . HCG quant was less than 2.4 and pelvic ultrasound revealed no intra or extra uterine . Rapid strep was negative. Assessment was concerning due to the severity throat redness, swelling and discharge. Will begin antibiotic therapy clinically. Patient given a single dose of Decadron in the ED. IV D/C'd with catheter fully intact without any signs or symptoms of infiltration or phlebitis. Discussed plan of care and return precautions with patient, verbalized understanding and was agreeable with course of action. <Tari Gonzalez, DO - Last Filed: 05/24/22 17:14> Lab Data Labs: Lab Results 05/23/22 05/23/22 05/23/22 Range/Units 12:45 13:05 13:05 WBC 16.0 H (4.5-11.0) X10^3/uL RBC 4.72 (4.0-5.2) X10^6/uL Hgb 13.7 (12.0-16.0) g/dL Hct 42.0 (36-46) % MCV 88.9 (80-100) fL MCH 29.1 (26-34) PG MCHC 32.7 (30-36) % RDW 13.5 (11.6-14.8) % Plt Count 245 (150-400) X10^3/uL Neut % (Auto) 78.1 H (50-75) % Lymph % (Auto) 9.7 L (25-40) % [place] % (Auto) 11.7 (3-14) % Eos % (Auto) 0.2 L (2-4) % Baso % (Auto) 0.3 (0-2) % Neut # (Auto) 58307 H (8079-6119) /uL Lymph # (Auto) 1600 (7211-7044) /uL [place] # (Auto) 1900 H (0-900) /uL Eos # (Auto) 0 (0-450) /uL Baso # (Auto) 0 (0-100) /uL Sodium 138 (137-145) mmol/L Potassium 3.9 (3.4-5.1) mmol/L Chloride 100 (98-107) mmol/L Carbon Dioxide 26 (22-32) mmol/L BUN 9 (7-17) mg/dL Creatinine 0.79 (0.52-1.04) mg/dL Estimated GFR > 60 (>60) mL/min BUN/Creatinine Ratio 11.4 (6-22) Glucose 95 (70-100) mg/dL Calcium 9.3 (8.4-10.2) mg/dL Total Bilirubin 1.0 (0.2-1.3) mg/dL AST 20 (14-36) IU/L ALT 13 (<35) IU/L Alkaline Phosphatase 84 (38-126) U/L Total Protein 8.3 H (6.3-8.2) g/dL Albumin 4.6 (3.5-5.0) g/dL Globulin 3.7 (1.7-4.1) g/dL Albumin/Globulin Ratio 1.2 (1.0-2.8) HCG, Quant < 2.4 mIU/mL Urine RBC (0-5/HPF) Urine WBC (0-5/HPF) Ur Squamous Epith Cells (0-5/HPF) Urine Bacteria (None) Ur Culture Indicated? SARS-CoV-2 (PCR) Negative (Negative) Influenza A (RT-PCR) Flu a negative (NEGATIVE) Influenza B (RT-PCR) Flu b negative (NEGATIVE) RSV (PCR) Negative (Negative) Blood Type Antibody Screen 05/23/22 05/23/22 Range/Units 13:05 13:59 WBC (4.5-11.0) X10^3/uL RBC (4.0-5.2) X10^6/uL Hgb (12.0-16.0) g/dL Hct (36-46) % MCV (80-100) fL MCH (26-34) PG MCHC (30-36) % RDW (11.6-14.8) % Plt Count (150-400) X10^3/uL Neut % (Auto) (50-75) % Lymph % (Auto) (25-40) % [place] % (Auto) (3-14) % Eos % (Auto) (2-4) % Baso % (Auto) (0-2) % Neut # (Auto) (0340-9300) /uL Lymph # (Auto) (2008-7050) /uL [place] # (Auto) (0-900) /uL Eos # (Auto) (0-450) /uL Baso # (Auto) (0-100) /uL Sodium (137-145) mmol/L Potassium (3.4-5.1) mmol/L Chloride (98-107) mmol/L Carbon Dioxide (22-32) mmol/L BUN (7-17) mg/dL Creatinine (0.52-1.04) mg/dL Estimated GFR (>60) mL/min BUN/Creatinine Ratio (6-22) Glucose (70-100) mg/dL Calcium (8.4-10.2) mg/dL Total Bilirubin (0.2-1.3) mg/dL AST (14-36) IU/L ALT (<35) IU/L Alkaline Phosphatase (38-126) U/L Total Protein (6.3-8.2) g/dL Albumin (3.5-5.0) g/dL Globulin (1.7-4.1) g/dL Albumin/Globulin Ratio (1.0-2.8) HCG, Quant mIU/mL Urine RBC 0-1/hpf (0-5/HPF) Urine WBC 10-30/hpf H (0-5/HPF) Ur Squamous Epith Cells >30 /hpf H (0-5/HPF) Urine Bacteria Many (>30) H (None) Ur Culture Indicated? Specimen cultured SARS-CoV-2 (PCR) (Negative) Influenza A (RT-PCR) (NEGATIVE) Influenza B (RT-PCR) (NEGATIVE) RSV (PCR) (Negative) Blood Type B Positive Antibody Screen Negative Point of Care Testing Test Results Negative Rapid Strep A Negative Urine Dip Bedside Urine Glucose Negative Bedside Urine Bilirubin - Negative Bedside Urine Ketone +++ 80 Urine Specific [place] 1.030 Bedside Urine Occult Blood +/- Bedside Urine pH 6.0 Bedside Urine Protein + 30 Bedside Urine Urobilinogen - Negative Bedside Urine Nitrite - Negative Bedside Urine Leukocytes - Negative Esterase Discharge Plan Departure Patient Disposition: Home Clinical Impression: Pharyngitis Instructions: DI for Strep Throat Activity Restrictions/Additional Instructions: *You have been diagnosed with pharyngitis. Will begin treatment with penicillin starting today. We have given you a single dose of Decadron to help with the swelling in your throat. Good supportive care includes getting plenty of rest, increased oral hydration, cool fluids throughout the day, cool compresses to your throat, Tylenol or ibuprofen as needed for discomfort and take your antibiotics as prescribed. As we discussed, your blood test and ultrasound revealed that you are not at this time. Please follow-up with your [facility] doctor, urgent care or return to the emergency department if symptoms persist or worsen. *What to do: *Please continue to take your regular medications as directed. [x ] New medication prescriptions sent to your pharmacy: [[facility] in [place]] [ ] New medication written as a paper prescription [ ] No new medications given *Please follow up with your primary care provider in 2-3 days, call for an appointment. Let them know you were seen in the Emergency Department and that we ask that you be seen in follow up. We will electronically transmit a record of today's note if your PCP is in our system *If you do not have a primary care provider please contact the [facility] Resource line at [phone]. They will ask some questions about your medical history and help get you set up with a doctor in the community. ? Return to ER if you should have any new, worsening or concerning symptoms, such as worsening pain, severe headache, confusion, chest pain, difficulty breathing, fever greater than 101 F, shaking chills, persistent vomiting to the point that you cannot drink fluids, or other new or worsening symptoms. Prescriptions: New penicillin V potassium 500 mg tablet 500 mg PO BID 10 Days Qty: 20 0RF Referrals: Miscellaneous,DoctorMD [Primary Care Provider] - Stand Alone Forms: Patient Portal/API <Tari Gonzalez DO - Last Filed: 05/24/22 17:14> Cosign ED Attending Joseature Attestation: I was immediately available in the department for consultation. Documentation has been reviewed.
[2022-05-23] MEDS: DEXAMETHASONE 10 MG/ML VIAL PO (15:30)
[2022-05-23 15:37] VITALS: BP 114/58; PULSE 88; RESP 18; TEMP 36.6; O2SAT 99
== END 2022-05-23 15:38 | disposition home or self-care (01) ==
PROVIDERS: Emergency Medicine; Emergency Provider Registered Nurse
DX: J02.9 Acute pharyngitis, unspecified (principal); N92.6 Irregular menstruation, unspecified; Z20.822 Contact with and (suspected) exposure to COVID-19
CPT/HCPCS: 0241U; 76830; 76856; 80053; 81003; 81015; 81025; 84702; 85025; 86850; 86900; 86901; 87070; 87086; 87147; 87880; 99284; J1100

== ENCOUNTER → 2023-01-06 10:02 | Outpatient (CLI) | payer OTHER, MEDICAID, SELFPAY ==
--- NOTE | 2023-01-06 10:05 | DI.US.S_ITS ---
PROCEDURE: US OB <= 14 WEEKS FETUS INDICATIONS: DATES OUTSIDE/PRIOR DATING DATA: Last menstrual period (LMP): 10/10/2022. LMP-based estimated date of delivery (KELLY): 07/17/2023. First dating scan (date and location): 01/06/2023. Estimated date of delivery (KELLY) from first dating scan: 08/10/2023. The calculations are made using the ultrasound KELLY of 08/10/2023. TECHNIQUE: Real-time scanning was performed of the fetus and maternal pelvic organs, with image documentation. Endovaginal scanning was also performed to better visualize the fetus and maternal ovaries. COMPARISON: None. FINDINGS: Embryo: [place]-rump length measuring 2.4 cm corresponding to gestational age 9 weeks 1 day. Clinical estimated gestational age 12 weeks 4 days. Heart rate: 171 bpm A yolk sac is seen. No perigestational hemorrhage. Maternal organs: Ovaries are within normal limits. Left corpus luteum measuring 1.3 cm. . IMPRESSION: 1. [place] living intrauterine at 9 weeks 1 day based on today's crown rump length. 2. No perigestational hemorrhage. We strive to produce accurate, complete, and clear reports of imaging services. To assist us in improving patient care, this report was composed using standard report templates and voice recognition software. Therefore, it may contain abnormal punctuation, insertions and/or omissions. Occasional wrong-word or sound-alike substitutions may occur. Though we review the report and make efforts to correct it, we do recommend that the report be read carefully in proper context to recognize any text inaccuracies. Dictated by: Chase Rodriguez M.D. on 01/06/2023 at 13:43 Approved by: Chase Rodriguez M.D. on 01/06/2023 at 13:45
== END ==
PROVIDERS: PCP Student in an Organized Health Care Education/Training Program; Referring Provider Student in an Organized Health Care Education/Training Program; Visit Provider Student in an Organized Health Care Education/Training Program
DX: Z34.81 Encounter for supervision of other normal pregnancy, first trimester (principal); Z3A.09 9 weeks gestation of pregnancy
CPT/HCPCS: 76801; 76817

== ENCOUNTER → 2023-01-07 11:11 | Outpatient (CLI) | payer OTHER, MEDICAID, SELFPAY ==
[2023-01-07 11:29] LABS: COVID19 -Nasal RAPID Negative (Negative)
== END ==
PROVIDERS: PCP Student in an Organized Health Care Education/Training Program; Visit Provider Student in an Organized Health Care Education/Training Program
DX: Z20.822 Contact with and (suspected) exposure to COVID-19 (principal)
CPT/HCPCS: 87635

== ENCOUNTER → 2023-05-06 15:45 | Outpatient (CLI) | payer OTHER, MEDICAID, SELFPAY ==
[2023-05-06 17:22] LABS: Appearance Urine UA CLEAR; Bilirubin Urine UA NEGATIVE (NEGATIVE); Color Urine UA YELLOW; Glucose Urine UA NEGATIVE (Negative); Ketones Urine UA TRACE (NEGATIVE); Leukocyte Esterase Urine UA 1+ (NEGATIVE); Nitrite Urine UA NEGATIVE (Negative); Occult Blood Urine UA NEGATIVE (Negative); Protein Urine UA NEGATIVE (Negative); Specific Gravity Urine UA 1.025 (1.000-1.035); Urobilinogen Urine UA 0.2 E.U./dL (0.2)
[2023-05-06 17:46] LABS: Add Manual Diff / Slide Review NO; Basophils Absolute Auto 0 /uL (0-100); Basophils Percent Auto 0.3 % (0-2); Eosinophils Absolute Auto 100 /uL (0-450); Eosinophils Percent Auto 0.8 % (2-4); Hematocrit 35.1 % (36-46); Hemoglobin 11.9 g/dL (12.0-16.0); Lymphocytes Absolute Auto 1700 /uL (1100-4500); Lymphocytes Percent Auto 17.9 % (25-40); Mean Corpuscular HGB Conc 33.9 % (30-36); Mean Corpuscular Hemoglobin 31.3 PG (26-34); Mean Corpuscular Volume 92.4 fL (80-100); Monocytes Absolute Auto 800 /uL (0-900); Monocytes Percent Auto 7.8 % (3-14); Neutrophils Absolute Auto 7100 /uL (1500-7000); Neutrophils Percent Auto 73.2 % (50-75); Platelet Count 239 X10^3/uL (150-400); Red Cell Distribution Width 13.1 % (11.6-14.8); White Blood Cell Count 9.6 X10^3/uL (4.5-11.0)
[2023-05-06 18:12] LABS: GTT (PREG) 1 Hour PP 50gm Dose 79 mg/dL (76-139)
[2023-05-06 18:31] LABS: pH Urine UA 5.5 (4.5-8.0)
[2023-05-06 18:32] LABS: Bacteria Urine Many (>30); Culture Indicated Urine Cult Not Indicated; RBC Urine None Seen (0-5/HPF); Squamous Epithelial Cell Urine 5-10 /HPF (0-5/HPF); Urine Volume 10mL (spun); WBC Urine 1-5/HPF (0-5/HPF)
[2023-05-06 18:49] LABS: Hepatitis B Surface Antigen NEGATIVE s/c (NEGATIVE); Rubella Antibody IgG 2.8 IU/mL (>15)
[2023-05-06 19:09] LABS: HIV 1 & 2 Ab/Ag 4th Gen Combo NEGATIVE (NEGATIVE); Hep C Virus Ab w/Reflex Quant NEGATIVE s/c (NEGATIVE)
[2023-05-08 06:41] LABS: RPR Screen Non Reactive (Non Reactive)
[2023-05-08 12:49] LABS: Varicella IgG Antibody 944 index (Immune >165)
== END ==
PROVIDERS: PCP Student in an Organized Health Care Education/Training Program; Referring Provider Student in an Organized Health Care Education/Training Program; Visit Provider Student in an Organized Health Care Education/Training Program
DX: Z34.81 Encounter for supervision of other normal pregnancy, first trimester (principal); Z3A.24 24 weeks gestation of pregnancy
CPT/HCPCS: 36415; 80055; 81003; 81015; 82950; 86787; 86803; 86850; 86900; 86901; 87086; 87389

== ENCOUNTER → 2023-05-24 15:03 | Outpatient (CLI) | payer OTHER, MEDICAID, SELFPAY ==
--- NOTE | 2023-05-24 15:04 | DI.US.S_ITS ---
PROCEDURE: US OB >= 14 WEEKS FETUS INDICATIONS: 20 week gestation anatomy scan OUTSIDE/PRIOR DATING DATA: Last menstrual period (LMP): 10/10/2022. LMP-based estimated date of delivery (KELLY): 07/17/2023. First dating scan (date and location): 01/06/2023. Estimated date of delivery (KELLY) from first dating scan: 08/10/2023. The calculations are made using the ultrasound KELLY of 08/10/2023. TECHNIQUE: Real-time scanning was performed of the fetus, with image documentation and biometric measurements. Endovaginal scanning: Not performed COMPARISON: [facility], , OB <= 14 WEEKS FETUS, 01/06/2023, 10:13. FINDINGS: General: A single living intrauterine gestation is present. Presentation: Vertex. Placenta: Placental position is posterior, without previa. Amniotic fluid index: 11.9 cm, normal range is 5-24 cm. Single deepest vertical pocket is 4.1 cm. heart rate: 131 beats per minute. Maternal cervical canal: 4.1 cm long. Normal lower limit is 2.5 cm. biometrics: Biparietal diameter: 7.4 cm, 29 weeks 5 days. 65th percentile Head circumference: 26.2 cm, 28 weeks 3 days. 11th percentile Abdominal circumference: 22.5 cm, 27 weeks 0 days. 4th percentile Femur length: 5.5 cm, 29 weeks 0 days. 41st percentile Clinically estimated gestational age: 28 weeks 6 days Composite gestational age from present scan: 28 weeks 4 days Estimated weight and percentile: 1158 g, 13th percentile. Anatomic survey: Neuro: Ventricles are non-dilated at less than 10 mm. Cisterna magna is normal at 3-11 mm. Cerebellum is felt to be within normal limits. Nuchal skin fold: Normal at less than 6 mm between 14-21 weeks gestational age. Face: Nose and lips, facial profile are normal. Spine: No evidence for spina bifida. Heart: 4-chambered heart is present, with normal ventricular outflow tracts. Diaphragm: Diaphragm is intact. Stomach: Left-sided stomach is present. Kidneys: No hydronephrosis. Normal is less than 5 mm in 2nd trimester, less than 7 mm in 3rd trimester. Cord: 3-vessel cord has orthotopic insertion. Bladder: Normal in size. Extremities: All 4 extremities identified. IMPRESSION: Exam is technically difficult due to lie. 1. [place] living intrauterine at 38 weeks 4 days based on today's ultrasound. This is concordant with the prior dating. Fetus is in the 13th percentile overall for weight. Of note the abdominal circumference is in the 4th percentile. This could be seen in intrauterine growth restriction. 2. Normal placenta and amniotic fluid. 3. anatomic survey is within normal limits. Follow-up OB ultrasound could be considered. We strive to produce accurate, complete, and clear reports of imaging services. To assist us in improving patient care, this report was composed using standard report templates and voice recognition software. Therefore, it may contain abnormal punctuation, insertions and/or omissions. Occasional wrong-word or sound-alike substitutions may occur. Though we review the report and make efforts to correct it, we do recommend that the report be read carefully in proper context to recognize any text inaccuracies. Dictated by: Chase Rodriguez M.D. on 05/24/2023 at 18:11 Approved by: Chase Rodriguez M.D. on 05/24/2023 at 18:31
== END ==
PROVIDERS: PCP Student in an Organized Health Care Education/Training Program; Referring Provider Student in an Organized Health Care Education/Training Program; Visit Provider Student in an Organized Health Care Education/Training Program
DX: Z36.89 Encounter for other specified antenatal screening (principal); Z3A.28 28 weeks gestation of pregnancy
CPT/HCPCS: 76811

== ENCOUNTER → 2023-05-28 15:05 | Outpatient (CLI) | payer OTHER, MEDICAID, SELFPAY ==
[2023-05-31 08:25] LABS: Miscellaneous to LabCorp NATERA
== END ==
LOC: LAB 15:08
PROVIDERS: PCP Student in an Organized Health Care Education/Training Program; Referring Provider Student in an Organized Health Care Education/Training Program; Visit Provider Student in an Organized Health Care Education/Training Program
DX: Z34.83 Encounter for supervision of other normal pregnancy, third trimester (principal); Z13.79 Encounter for other screening for genetic and chromosomal anomalies; Z31.438 Encounter for other genetic testing of female for procreative management; Z36.0 Encounter for antenatal screening for chromosomal anomalies
CPT/HCPCS: 36415

== ENCOUNTER → 2023-07-23 11:43 | Outpatient (CLI) | payer OTHER, MEDICAID, SELFPAY ==
[2023-07-24 12:14] LABS: Strep Grp B PCR NEG for Grp B Strep
== END ==
PROVIDERS: PCP Student in an Organized Health Care Education/Training Program; Visit Provider Family Medicine
DX: Z34.81 Encounter for supervision of other normal pregnancy, first trimester (principal)
CPT/HCPCS: 87653

== ENCOUNTER 2023-07-23 12:17 | Outpatient (CLI) | payer OTHER, MEDICAID, SELFPAY ==
--- NOTE | 2023-07-23 12:27 | DI.US.S_ITS ---
PROCEDURE: US OB LIMITED INDICATIONS: POSSIBLE IUGR OUTSIDE/PRIOR DATING DATA: Last menstrual period (LMP): 10/10/22 LMP-based estimated date of delivery (KELLY): 07/17/23. First dating scan (date and location): 01/06/23. Estimated date of delivery (KELLY) from first dating scan: 08/10/23. The calculations are made using the above KELLY of 08/10/23. TECHNIQUE: Real-time scanning was performed of the fetus, with image documentation and biometric measurements. Endovaginal scanning: Not needed COMPARISON: None. FINDINGS: General: A single living intrauterine gestation is present. Presentation: Vertex. Placenta: Placental position is fundal , without previa. Amniotic fluid index: 7.9 cm, normal range is 5-24 cm. Single deepest vertical pocket is 4.1 cm. heart rate: 125 beats per minute. biometrics: Biparietal diameter: 9.0 cm, 36 weeks 3 days Head circumference: 32.4 cm, 36 weeks 5 days Abdominal circumference: 31.3 cm, 35 weeks 2 days Femur length: 7.3 cm, 37 weeks 1 day Clinically estimated gestational age: 37 weeks 3 days Composite gestational age from present scan: 36 weeks 3 days Estimated weight and percentile: 2836 g, 24th percentile Other: Biophysical profile yields 8 of 8 possible points.. IMPRESSION: Normal biophysical profile, appropriate interval growth. Current amniotic fluid volume is noted to be 7.9 cm We strive to produce accurate, complete, and clear reports of imaging services. To assist us in improving patient care, this report was composed using standard report templates and voice recognition software. Therefore, it may contain abnormal punctuation, insertions and/or omissions. Occasional wrong-word or sound-alike substitutions may occur. Though we review the report and make efforts to correct it, we do recommend that the report be read carefully in proper context to recognize any text inaccuracies. Dictated by: Tacos Maguire M.D. on 07/23/2023 at 14:17 Approved by: Tacos Maguire M.D. on 07/23/2023 at 14:20
== END 2023-07-23 13:32 | disposition home or self-care (01) ==
LOC: LABOR 12:57 → OB 07-26 10:37
PROVIDERS: PCP Student in an Organized Health Care Education/Training Program; Referring Provider Student in an Organized Health Care Education/Training Program; Visit Provider Student in an Organized Health Care Education/Training Program
DX: Z36.9 Encounter for antenatal screening, unspecified (principal)
CPT/HCPCS: 36415; 59025; 76815; 76819; 82728; 83540; 83550; 85025; 87653; G0378; G0379

== ENCOUNTER → 2023-07-23 13:35 | Outpatient (CLI) | payer OTHER, MEDICAID, SELFPAY ==
[2023-07-23 15:25] LABS: Add Manual Diff / Slide Review NO; Basophils Absolute Auto 0 /uL (0-100); Basophils Percent Auto 0.1 % (0-2); Eosinophils Absolute Auto 200 /uL (0-450); Eosinophils Percent Auto 1.4 % (2-4); Hematocrit 33.9 % (36-46); Hemoglobin 11.4 g/dL (12.0-16.0); Lymphocytes Absolute Auto 1700 /uL (1100-4500); Lymphocytes Percent Auto 14.4 % (25-40); Mean Corpuscular HGB Conc 33.5 % (30-36); Mean Corpuscular Hemoglobin 29.9 PG (26-34); Mean Corpuscular Volume 89.2 fL (80-100); Monocytes Absolute Auto 700 /uL (0-900); Monocytes Percent Auto 6.4 % (3-14); Neutrophils Absolute Auto 9000 /uL (1500-7000); Neutrophils Percent Auto 77.7 % (50-75); Platelet Count 238 X10^3/uL (150-400); Red Cell Distribution Width 12.4 % (11.6-14.8); White Blood Cell Count 11.6 X10^3/uL (4.5-11.0)
[2023-07-23 15:52] LABS: HEMOLYSIS < 15 (0-50); Iron 53 ug/dL (37-170)
[2023-07-23 16:05] LABS: Percent Iron Saturation 9 % (15-50); Total Iron Binding Capacity 575 ug/dL (265-497); Transferrin 477 mg/dL (206-381)
[2023-07-23 16:24] LABS: Ferritin 6 ng/mL (6-137)
== END ==
PROVIDERS: PCP Student in an Organized Health Care Education/Training Program; Referring Provider Family Medicine; Visit Provider Family Medicine
DX: Z34.81 Encounter for supervision of other normal pregnancy, first trimester (principal)
CPT/HCPCS: 36415; 82728; 83540; 83550; 85025; 87653

== ENCOUNTER 2023-08-16 19:13 | Inpatient (IN) | payer OTHER, MEDICAID, SELFPAY ==
--- NOTE | 2023-08-16 20:43 | P.HPOB_ITS ---
OB HPI Date/Time Date of admission: 08/16/23 Date Patient Seen: 08/17/23 History of Present Condition Chief complaint: Induction KELLY Calculator 2 Estimated Delivery Date Method Current WG Current Estimate 08/08/23 Ultrasound #1 41w 2d Other Estimates 07/17/23 LMP (Uncertain) 44w 3d care: good care Dating criteria OB: LMP confirmed by 1st trimester US Obstetrical complications: growth restriction (resolved on follow up US) Medical complications OB: none Narrative: here for IOL for post dates. complicated by growth restriction on 28 week US, follow up US at 36 weeks with appropriate growth. GBS negative. labs unremarkable except for rubella non-immune. Indications Indication for induction OB: post dates Preadmission Labs Last OB Lab Results: 2 Blood Type B Positive 08/16/23 20:00 Antibody Screen Negative 08/16/23 20:00 Hematocrit 35.2 % (36-46) L 08/16/23 20:00 Hemoglobin 11.9 g/dL (12.0-16.0) L 08/16/23 20:00 Hepatitis B Surface Antigen Negative s/c (NEGATIVE) 05/06/23 15 :59 Hepatitis C Antibody Negative s/c (NEGATIVE) 05/06/23 15:59 Rubella Antibody 2.8 IU/mL (>15) L 05/06/23 15:59 Varicella-Zoster IgG Antibody 944 index (Immune >165) 05/06/23 15:59 Glucose 1 Hour 79 mg/dL (76-139) 05/06/23 15:59 Group B Streptococcus (PCR) Neg for grp b strep 07/23/23 11:43 Glucose Tolerance Testin hr Genetic Screens: Cell-free DNA: Normal Prior (ies) Past Pregnancies Del. Date GA/Weeks Labor Lgth Wt Sex Route Outcome Anesthesia Place Delv Breastfeed Preg Comp Name 03/12/22 6-8 spontaneous Delivery Date: 03/12/22 Last Updated by: Karin Fabian RN passed spontaneously, no complications Evaluation Evaluation Baseline heart rate: 125 Variability: Moderate (11-25) monitor accelerations: Present Monitor Decelerations: Absent Category of Tracing: Reactive Status: Category l Dilation: Closed [facility] Medical History (Updated 02/03/23 @ 21:01 by Orquidea Meza) PTSD (post-traumatic stress disorder) History of bipolar disorder Suicide attempt Ankle fracture (~2013) Wrist fracture (~2016) Hypokalemia CAP (community acquired pneumonia) Acute asthma exacerbation Acute respiratory failure with hypoxia Depression Anxiety Intentional drug overdose Surgical History (Updated 12/31/22 @ 08:40 by Karin Fabian RN) No pertinent past surgical history Family History (Updated 02/03/23 @ 21:05 by Orquidea Meza) Mother H/O Spinal surgery Mental health problem Grandmother Diabetes mellitus Heart disease Hypertension Hyperlipidemia Grandmother Heart disease Breast cancer Family/Other Liver cancer Alcohol abuse Grandfather Cancer Heart disease Stroke Grandfather Diabetes mellitus Hyperlipidemia Hypertension Stroke Social History marital status: unmarried,living together number of children: 0 household members: significant other lives independently: Yes caregiver/support person: No housing: house pets and animals: No education level: high school occupational status: employed ([employer]) current occupational exposures/hazards: No special radha needs: No travel history: over 6 months ago seatbelt use: always helmet use: Yes water heater temp set < 120 deg: Yes working smoke detector in home: Yes fire extinguisher in home: Yes carbon monox detector in home: Yes firearms in home: No do you feel safe at home: Yes Smoking Status: Former smoker Tobacco: How many years used: 1 (off and on, vaping only) second hand exposure: Yes (S/O is trying to quit) alcohol intake: former (sober several month) substance use type: marijuana (agrees not to use while /) during the past year weight has: other (had gained weight, but lost it again w/ diet/exercise) well-balanced diet: daily or most days daily servings fruits/ve-4 caffeine: Yes (only occasionally) Type(s) of exercise: walking, regular exercise and weight lifting Meds Home Medications and Allergies Home Medications Medication Instructions Recorded Confirmed Type vitamin-ferrous sulfate tab PO 12/31/22 08/12/23 History 27 mg iron-folic acid 0.8 mg tablet ferrous sulfate 324 mg (65 mg 324 mg PO Q OTHER DAY 30 days #15 07/23/23 08/12/23 Rx iron) tablet,delayed release tabs hydroxyzine pamoate 25 mg capsule 25 mg PO TID PRN anxiety #30 caps 07/23/23 08/12/23 Rx (Vistaril) ondansetron 4 mg disintegrating 4 mg PO Q6H PRN nausea and 07/30/23 08/12/23 Rx tablet vomiting #30 tabs Allergies Allergy/AdvReac Type Severity Reaction Status Date / Time No Known Drug Allergies Allergy Verified 08/12/23 10:58 Objective Labs 08/16/23 20:00 Assessment and Plan Assessment and Plan Assessment and Plan narrative: at 41w1d here for post dates induction. complicated by resolved growth restriction. GBS negative, rubella non-immune. -oral misoprostol 25 mcg
[2023-08-16] MEDS: miSOPROStoL 25 MCG TABLET PO (20:49)
[2023-08-16 20:54] LABS: Add Manual Diff / Slide Review NO; Basophils Absolute Auto 100 /uL (0-100); Basophils Percent Auto 0.6 % (0-2); Eosinophils Absolute Auto 200 /uL (0-450); Eosinophils Percent Auto 1.3 % (2-4); Hematocrit 35.2 % (36-46); Hemoglobin 11.9 g/dL (12.0-16.0); Lymphocytes Absolute Auto 2700 /uL (1100-4500); Lymphocytes Percent Auto 18.1 % (25-40); Mean Corpuscular HGB Conc 33.7 % (30-36); Mean Corpuscular Hemoglobin 29.6 PG (26-34); Mean Corpuscular Volume 87.9 fL (80-100); Monocytes Absolute Auto 1200 /uL (0-900); Neutrophils Absolute Auto 10700 /uL (1500-7000); Platelet Count 251 X10^3/uL (150-400); Red Blood Cell Count 4.01 X10^6/uL (4.0-5.2); Red Cell Distribution Width 12.7 % (11.6-14.8); White Blood Cell Count 14.9 X10^3/uL (4.5-11.0)
--- NOTE | 2023-08-17 03:04 | P.PCN_ITS ---
Regional Block Pre-procedure Procedure: Continuous Lumbar Epidural for L&D (CSE) Attending OB provider: Birdie Medley PMH/ROS narrative: 22yo female full term in labor requesting epidural. See pre-anesthesia assessment for further details. ASA Class: II Labs: Hct 35.2 % (36-46) L 08/16/23 20:00 Plt Count 251 X10^3/uL (150-400) 08/16/23 20:00 Medications: Current Medications Generic Name Dose Route Start Last Admin Trade Name Freq PRN Reason Stop Dose Admin Acetaminophen 650 mg 08/16/23 20:30 Acetaminophen 325 Mg Tablet PO Q4HR PRN Fever/Mild Pain (1-3) Calcium Carbonate 500 mg 08/16/23 20:30 Calcium Carbonate 500 Mg Tab PO Q2H PRN Dyspepsia Calcium Carbonate 500 mg 08/16/23 20:41 Calcium Carbonate 500 Mg Tab PO Q2H PRN Dyspepsia Carboprost Tromethamine 250 mcg 08/16/23 20:41 Carboprost 250 Mcg/Ml Ampul IM Q90M PRN Bleeding Diphenhydramine HCl 25 mg 08/17/23 03:02 Diphenhydramine 50 Mg/Ml Vial IV Q10M PRN Pruritis Ephedrine Sulfate 5 mg 08/17/23 03:02 Ephedrine 50 Mg/Ml Vial IV Q5M PRN Blood pressure decrease more than 20% of baseline Lactated Ringer's 1,000 mls @ 100 mls/hr 08/16/23 20:30 Lactated Ringers IV CONT SORAYA Lactated Ringer's 1,000 mls @ 100 mls/hr 08/16/23 20:45 Lactated Ringers IV CONT SORAYA Lactated Ringer's 1,000 mls @ 100 mls/hr 08/16/23 20:45 Lactated Ringers IV CONT SORAYA Oxytocin/Lactated Ringer's 30 unit in 500 mls @ 200 mls/hr 08/16/23 20:41 Oxytocin Premix IV CONT PRN Bleeding Protocol Tranexamic Acid 1,000 mg/ 100 mls @ 200 mls/hr 08/16/23 20:41 Sodium Chloride IV NOW PRN Bleeding FENT 2MCG/ML BUPIV 0.125% EPI 200 mcg in 100 mls @ 6 mls/hr 08/17/23 03:15 Fentanyl/Bupiv/Ns 2mcg/Ml - 0.125% EPIDURAL CONT SORAYA Lidocaine HCl 20 ml 08/16/23 20:41 Lidocaine 1% 20 Ml INJ INTRA-OP PRN Post Delivery Methylergonovine Maleate 0.2 mg 08/16/23 20:41 Methylergonovine 0.2 Mg Tablet PO Q6HR PRN Heavy Bleeding Methylergonovine Maleate 0.2 mg 08/16/23 20:41 Methylergonovine 0.2 Mg/Ml Vial IM NOW PRN Bleeding Misoprostol 25 mcg 08/16/23 20:30 Misoprostol 25 Mcg Tablet VAG Q4H SORAYA Misoprostol 25 mcg 08/16/23 21:00 08/16/23 20:49 Misoprostol 25 Mcg Tablet PO 25 mcg QID SORAYA Administration Misoprostol 800 mcg 08/16/23 20:41 Misoprostol 200 Mcg Tablet MN NOW PRN Bleeding Misoprostol 400 mcg 08/16/23 20:41 Misoprostol 200 Mcg Tablet SL NOW PRN Bleeding Morphine Sulfate 2 mg 08/16/23 20:30 Morphine 2 Mg/Ml Inj IV Q4HR PRN Pain, Moderate (4-6) Morphine Sulfate 2 mg 08/16/23 20:41 Morphine 2 Mg/Ml Inj IV Q4HR PRN Pain, Moderate (4-6) Nalbuphine HCl 2.5 mg 08/17/23 03:02 Nalbuphine 20 Mg/Ml Ampul IV Q10M PRN Pruritis Naloxone HCl 0.2 mg 08/16/23 20:41 Naloxone 0.4 Mg/Ml Vial IV Q2MIN PRN Opiate Reversal Ondansetron HCl 4 mg 08/16/23 20:41 Ondansetron 4 Mg/2 Ml Inj IV Q4HR PRN Nausea And Vomiting Oxytocin 10 unit 08/16/23 20:41 Oxytocin 10 Unit/Ml Vial IM NOW PRN Bleeding Sodium Chloride 10 ml 08/16/23 21:00 Sodium Chloride 0.9% Flush IV BID [facility] Sodium Chloride 10 ml 08/16/23 20:41 Sodium Chloride 0.9% Flush IV PRN PRN Flush Sodium Chloride 10 ml 08/17/23 09:00 Sodium Chloride 0.9% Flush IV BID [facility] Sodium Chloride 10 ml 08/17/23 03:02 Sodium Chloride 0.9% Flush IV PRN PRN Flush Allergies: Allergies Allergy/AdvReac Type Severity Reaction Status Date / Time No Known Drug Allergies Allergy Verified 08/12/23 10:58 Procedure Insertion date: 08/17/23 Insertion time: 02:40 Prep/Local: 1% lidocaine (Chloraprep) Interspace: L3-4 Patient position: sitting Needle: 18 gauge Hustead Loss of resistance with: saline DARIA at (cm): 7 Catheter placed at SKIN (cm): 13 Catheter in SPACE (cm): 6 Insertion: Yes CSF, No Blood, No Paresthesia with insertion, No Paresthesia with injection and No Test dose reaction Initial Medications TEST DOSE time: 02:41 TEST DOSE: 1.5% lidocaine with epinephrine 1:200k (mL): 3 BOLUS DOSE time: 02:42 BOLUS DOSE (mL): 2 BOLUS DOSE med: other (same) Infusion Initial rate (mL/hr): 8 Subsequent interventions: Time-out 02:26. CSE done with spinal dose at 02:39 of 0.5 ml of 0.75% bupivacaine in dextrose. Two attempts at L3-4 with second successful after additional local (total 5 ml) and repositioning pt. Pt tolerated procedure well. KR Post-procedure Anesthesia date START: 08/17/23 Anesthesia time START: 02:24 Anesthesia date END: 08/17/23 Anesthesia time END: 08:00 Post-procedure Anesthesia Assessment: Yes CV function: HR/BP stable, Yes Resp function: RR/sat/airway adequate, Yes Post-op hydration adequate, Yes Pain control adequate, Yes Nausea & vomiting absent, Yes Temperature > 36 C, Yes Mental status appropriate and No Anesthesia complications
[2023-08-17] MEDS: OXYTOCIN PREMIX 30 UNIT/500 ML PLAST..BAG 200 UNIT IV (06:57)
--- NOTE | 2023-08-17 06:57 | PM.OBPNLAB ---
Date/Time Date Patient Seen: 08/17/23 Time Patient Seen: 06:00 Pain Control Pain control: tolerating well and epidural Pelvic Exam Dilation (cm): 7 Effacement (%): 100 station: 0 Amniotic membrane status: Ruptured Comments: SROM Contractions Contractions on admission: none Monitor mode: External Contraction pattern: Regular Contraction intensity: Mild Status status: Category l Heart Rate Baseline: 110 Monitor Accelerations: Present Monitor Decelerations: Early and Variable Monitor Variability: Moderate Assessment and Plan Assessment: induction ongoing Plan: begin patient augmentation Comments: here for postdates IOL. -oral cytotec 25 mcg given with excellent response -SROM 3:26 am -progressed to 7cm/100%/0 station now with variable decelerations -IUPC placed and amnioinfusion started, will aim to start pitocin when category 1 tracing -plan for vaginal delivery
--- NOTE | 2023-08-17 07:47 | PM.OBPNLAB ---
Date/Time Date Patient Seen: 08/17/23 Time Patient Seen: 07:45 Pain Control Pain control: tolerating well and epidural Pelvic Exam Dilation (cm): 7 Effacement (%): 100 station: -1 Amniotic membrane status: Ruptured Contractions Monitor mode: External Pitocin rate (mU/min): 2 Contraction frequency (min): 1 Contraction pattern: Regular Contraction intensity: Mild Status status: Category l Heart Rate Baseline: 110 Monitor Accelerations: Present Monitor Decelerations: Late Monitor Variability: Moderate Assessment and Plan Assessment: other Plan: Comments: here for induction of labor for post dates. -Category 2 tracing with late decelerations, unable to augment labor -SVE remains the same 7/100/-1 station since 3:30am -will proceed with primary delivery for intolerance of labor and failure to progress -consents signed, OR aware
[2023-08-17] MEDS: CEFAZOLIN 2 GM/100 ML PREMIX 100 ML IV (08:10)
[2023-08-17] MEDS: AZITHROMYCIN 500 MG in DEXTROSE 5% IN WATER 250 ML 250 MG IV (08:15)
--- NOTE | 2023-08-17 08:18 | SUR.OPER ---
Supine on Padded OR bed, head on pillow, safety belt at thigh, arms secured on padded arm boards at <90 degrees abduction. Bump under right buttock. Legs uncrossed with pillow under knees, gel pad to heels, tape over blanket to lower legs.
[2023-08-17] MEDS: ACETAMINOPHEN IV 1,000 MG/100 ML VIAL 400 MG IV (08:20)
[2023-08-17] MEDS: BUPIVACAINE LIPOSOME 266 MG/20 ML VIAL INJ (08:46)
[2023-08-17 09:25] VITALS: BP 118/65; PULSE 80; RESP 13; TEMP 36.3; O2SAT 98
[2023-08-17 09:29] VITALS: BP 125/80; PULSE 89; RESP 12; TEMP 36.3; O2SAT 98
[2023-08-17 09:34] VITALS: BP 113/84; PULSE 79; RESP 12; TEMP 36.6; O2SAT 98
--- NOTE | 2023-08-17 11:33 | P.OP_ITS ---
Operative Date/Time/Diagnoses Date of procedure: 08/17/23 Time of procedure: 08:15 Pre-op diagnosis: intolerance of labor; failure to progress; arrest of dilation Post-op diagnosis: same Procedure & Clinicians Procedure: Primary section Same procedure as scheduled: Yes Indications: intolerance of labor; failure to progress; arrest of dilation Surgeon: Birdie Medley Associate Professor Of Economics: Mili Gallegos Anesthesia Type: General and Epidural (conversion to general) Operative Notes Findings: Normal uterus, ovaries, and tubes Closure Type: primary Intraoperative meds administered: Methergine Applied: Catheter Estimated Blood Loss (mL): 450 Blood products transfused: none Procedure in detail: OPERATIVE COURSE: The patient was taken to the operating room where epidural anesthesia was dosed to a surgical level. She was then prepared and draped in the normal sterile fashion in the dorsal supine position with a leftward tilt. Anesthesia was tested and found to be adequate. A Pfannensteil skin incision was then made with the scalpel and carried through to the underlying layer of fascia with the scalpel. At this point, patient expressed she was feeling pain. Anesthesia was redosed without adequate coverage. Decision was made to convert to general anesthesia. After patient was placed under general anesthesia, the fascia was incised in the midline and the incision extended laterally with blunt force. The vesicouterine peritoneum was identified, and was entered bluntly. The incision was then extended laterally. An lissy retractor was placed for visualization. The lower uterine segment incised in a transverse fashion with the scalpel, with the hand frame surgical elastic knitter providing suction. The uterine incision was then extended superolaterally by pulling superolaterally on both sides. Membranes w ere ruptured and fluid was clear. The 's head was flexed out of SHANNEN position and delivered atraumatically, with fundal pressure by the hand frame surgical elastic knitter. The cord was clamped and cut. The was handed off to the waiting nursing staff. Cord blood was collected for Rh status. The placenta was then delivered with gentle cord traction. The uterus was then exteriorized and cleared of all clots and debris. The uterine incision was repaired with 0 monocryl in a running, locked fashion. A second layer of the same suture was used to obtain excellent hemostasis. The uterus was returned to the abdomen. The gutters were cleared of all clots. Hysterotomy was investigated and found to be hemostatic. The fascia was reapproximated with 0 vicryl in a running fashion. Exparel (bupivacaine) was injected into the fascia layer for post operative pain control. The subcutaneous tissue was reapproximated with 3-0 vicyrl. The skin was closed with 4-0 vicyrl. The hand frame surgical elastic knitter helped with retraction during closures. SPONGE AND NEEDLE COUNTS: Correct x3. DRESSING: Aquacel ANTICOAGULATION: SCDs applied prior to Surgery Preop antibiotics given (see MAR). The patient was taken to recovery room having tolerated procedure well. Complications: none Post-operative Condition: stable Disposition: PACU Aftercare: routine postop
[2023-08-17] MEDS: ACETAMINOPHEN 325 MG TABLET 650 MG PO (14:01)
[2023-08-17] MEDS: KETOROLAC 30 MG/ML VIAL IV ×2 (14:58→21:41)
[2023-08-17] MEDS: OXYCODONE IR 5 MG TABLET PO (16:30)
[2023-08-18] MEDS: ACETAMINOPHEN 325 MG TABLET 650 MG PO ×3 (01:19→17:59)
[2023-08-18 03:59] VITALS: BP 122/65; PULSE 75; RESP 16; TEMP 36.7
[2023-08-18] MEDS: KETOROLAC 30 MG/ML VIAL IV (03:59)
[2023-08-18] MEDS: FERROUS SULFATE 325 MG TABLET PO (07:49)
[2023-08-18 08:36] LABS: Add Manual Diff / Slide Review NO; Basophils Absolute Auto 0 /uL (0-100); Basophils Percent Auto 0.2 % (0-2); Eosinophils Absolute Auto 100 /uL (0-450); Eosinophils Percent Auto 0.6 % (2-4); Hematocrit 31.3 % (36-46); Hemoglobin 10.4 g/dL (12.0-16.0); Lymphocytes Absolute Auto 2800 /uL (1100-4500); Lymphocytes Percent Auto 16.8 % (25-40); Mean Corpuscular HGB Conc 33.1 % (30-36); Mean Corpuscular Hemoglobin 29.3 PG (26-34); Mean Corpuscular Volume 88.6 fL (80-100); Monocytes Absolute Auto 1700 /uL (0-900); Monocytes Percent Auto 10.1 % (3-14); Neutrophils Absolute Auto 12200 /uL (1500-7000); Neutrophils Percent Auto 72.3 % (50-75); Platelet Count 225 X10^3/uL (150-400); Red Blood Cell Count 3.53 X10^6/uL (4.0-5.2); Red Cell Distribution Width 13.1 % (11.6-14.8); White Blood Cell Count 16.8 X10^3/uL (4.5-11.0)
--- NOTE | 2023-08-18 11:09 | PM.OBPN.1 ---
Subjective - OB Subjective Patient comments: pain well controlled, incisional pain and tolerating diet baby status: doing well and nursing well [place] feeding status: exclusively breast feeding Narrative: day 1 post op from primary delivery for intolerance of labor, failure to progress, arrest of dilation. Kierra is doing well. She is up moving around. Just feeling tired. May want to go home this afternoon, will see how she is feeling after a nap. Moderate lochia. Incisional pain. Pain well controlled. Date Patient Seen: 08/18/23 Time Patient Seen: 11:00 Exam Vital Signs (past 8 hours): Oxygen Delivery Method Room Air Narrative Exam Narrative: Uterus at fundus. No acute distress. Resting. Objective Labs 08/18/23 08:10 Labs: Laboratory Results - last 24 hr 08/18/23 08:10 WBC 16.8 H RBC 3.53 L Hgb 10.4 L Hct 31.3 L MCV 88.6 MCH 29.3 MCHC 33.1 RDW 13.1 Plt Count 225 Neut % (Auto) 72.3 Lymph % (Auto) 16.8 L [place] % (Auto) 10.1 Eos % (Auto) 0.6 L Baso % (Auto) 0.2 Neut # (Auto) 76987 H Lymph # (Auto) 2800 [place] # (Auto) 1700 H Eos # (Auto) 100 Baso # (Auto) 0 Assessment & Plan Plan day: 1 plan OB: routine care and routine postop care Comments: Possible discharge home this evening. Time Spent With Patient Time: Total time spent is greater than 50% in coordination of care (as documented) at patient's floor/unit and/or counseling patient: Time with patient: less than 15 minutes
--- NOTE | 2023-08-18 11:15 | PM.OBDS.1 ---
Discharge Providers Provider Date of admission: 08/16/23 19:13 Discharge Date: 08/19/23 Primary care physician: Birdie Medley MD Consults: 08/16/23 20:42 Consult to Anesthesiology Urgent Comment: Consulting Provider: Anesthesiologist Reason for consultation: Epidural 08/17/23 10:29 Consult to Sole Trimmer Routine Comment: Discharge provider: Birdie Medley MD Summary Hospital Course Date Patient Seen: 08/19/23 Time Patient Seen: 09:45 Diagnoses: Primary Delivery of Term Hospital Course: G2 now P1 who presented for induction of labor for post dates. complicated by resolved growth restriction. She was induced with one dose of oral misoprostol and progressed to 7cm. She had SROM with clear fluid. Following SROM and epidural, category 2 tracing for late and variable decelerations. IUPC and amniofusion with resolution of variable decelerations. Pitocin started with recurrent late decelerations as well as prolonged late deceleration. No further dilation. Patient underwent primary delivery for intolerance of labor, arrest of dilation and failure to progress. She is day 2 post op. Kierra is doing well. She is up moving around. She had bowel movement this morning. well. Mild incisional pain, controlled with oral medications. Peripartum Data Infant Delivery Method: Section Laceration Description: None complications: none Status at Discharge Cognitive/behavioral status at discharge: at baseline, oriented Functional status at discharge: independent ambulation Overall status at discharge: patient is back to baseline Time Spent with Patient Time attestation: Total time spent providing and/or coordinating discharge services: Time spent: Greater than 30 minutes Objective Labs 08/18/23 08:10 Labs: Laboratory Results - last 24 hr 08/18/23 08:10 WBC 16.8 H RBC 3.53 L Hgb 10.4 L Hct 31.3 L MCV 88.6 MCH 29.3 MCHC 33.1 RDW 13.1 Plt Count 225 Neut % (Auto) 72.3 Lymph % (Auto) 16.8 L [place] % (Auto) 10.1 Eos % (Auto) 0.6 L Baso % (Auto) 0.2 Neut # (Auto) 74638 H Lymph # (Auto) 2800 [place] # (Auto) 1700 H Eos # (Auto) 100 Baso # (Auto) 0 Exam Vital Signs (past 8 hours): Oxygen Delivery Method Room Air Narrative Exam Narrative: Uterine fundus below umbilicus. NAD, breathing easily. Discharge Plan Discharge Plan Patient Disposition: Home Discharge orders & Medications Prescriptions: New acetaminophen 325 mg Tablet 650 mg PO Q6H Qty: 60 0RF ibuprofen 600 mg Tablet 600 mg PO Q6H Qty: 30 0RF oxycodone 5 mg Tablet 5 mg PO Q4H PRN (Reason: Pain, Moderate (4-6)) Qty: 20 0RF Continued hydroxyzine pamoate [Vistaril] 25 mg capsule 25 mg PO TID PRN (Reason: anxiety) Qty: 30 0RF ondansetron 4 mg tablet,disintegrating 4 mg PO Q6H PRN (Reason: nausea and vomiting) Qty: 30 1RF ferrous sulfate 324 mg (65 mg iron) tablet,delayed release (DR/EC) 324 mg PO Q OTHER DAY 30 Days Qty: 15 0RF vit-ferrous sulfat-FA 27 mg iron- 0.8 mg tablet See Rx Instructions .ROUTE .COMPLEX Rx Instructions: per provider order Follow up/Referrals: Birdie Medley MD [Primary Care Provider] - 2 Weeks (followup August 30 at 3:30pm.) Visit Report/Discharge Packet Instructions: DI for , DI for Depression Stand Alone Forms: Discharge: Care, Patient Portal/API, Stroke Signs & Symptoms Discharge Data Primary Care Provider: Birdie Medley
[2023-08-18] MEDS: IBUPROFEN 600 MG TABLET PO (17:58)
[2023-08-19] MEDS: IBUPROFEN 600 MG TABLET PO ×2 (00:13→06:40)
[2023-08-19] MEDS: ACETAMINOPHEN 325 MG TABLET 650 MG PO ×2 (00:14→06:40)
[2023-08-19] MEDS: FERROUS SULFATE 325 MG TABLET PO (08:47)
[2023-08-19] MEDS: OXYCODONE IR 5 MG TABLET PO (08:48)
[2023-08-19] MEDS: PRENATAL VIT,CALC/IRON/FOLIC 1 TABLET 1 TAB PO (08:48)
[2023-08-19] MEDS: MEASLES,MUMPS,RUBELLA VACC/PF 0.5 ML VIAL SUBCUT (10:33)
== END 2023-08-19 11:47 | disposition home or self-care (01) | DRG 540 ==
PROVIDERS: Family Medicine; Admitting Provider Student in an Organized Health Care Education/Training Program; PCP Student in an Organized Health Care Education/Training Program; Referring Provider Student in an Organized Health Care Education/Training Program; Visit Provider Student in an Organized Health Care Education/Training Program
PROC: 10D00Z1 Extraction of Products of Conception, Low, Open Approach (ICD-10-PCS; CPT 59514; principal; 2023-08-17 07:45)
DX: O61.0 Failed medical induction of labor (principal); O48.0 Post-term pregnancy; Z37.0 Single live birth; Z3A.41 41 weeks gestation of pregnancy; O76 Abnormality in fetal heart rate and rhythm complicating labor and delivery
CPT/HCPCS: 36415; 59050; 59200; 85025; 86850; 86900; 86901; C9290; G0379; J0136; J0690; J1100; J1885; J2274; J2405; J2590; J2704; J3010